=== PATIENT | female | born 1990 | race Two or more races ===

== ENCOUNTER 2024-06-02 14:20 | Emergency (ER) | payer OTHER, MEDICAID, SELFPAY ==
[2024-06-02 14:32] VITALS: BP 170/94; PULSE 94; RESP 24; TEMP 37.2; O2SAT 97
--- NOTE | 2024-06-02 14:48 | EDNOTE_ITS ---
<Statement entered by Keyla Odom MD - 06/03/24 09:15> As co-signing physician, I was present and available for consult prn. I concur with the plan and care as documented by the midlevel provider. ED General RME/HPI General Chief complaint: Back Pain/Injury Stated complaint: BACK PAIN Time Seen by Provider: 06/02/24 14:44 Arrival date/time: 06/02/24 14:20 RME / HPI RME / HPI narrative: 34-year-old female patient with no significant medical history, except for morbid obesity, came in for evaluation regarding low back pain. Patient has been having worsening low back pain for the last 1 month getting worse for the last 1 to 2 weeks, seen by PCP chiropractor, and was diagnosed with calcified disc disease lumbar area. Currently taking Motrin with no relief. Currently pain is 10 out of 10 nonradiating. Patient denies any urinary incontinence. Denies any bowel incontinence. Denies any saddle anesthesia. Patient denies any trauma or fall recently. Denies any fever no dysuria frequency or hem aturia. Related Data Home Medications ?Medication ?Instructions ?Recorded ?Confirmed NORGESTIMATE-ETHINYL ESTRADIOL 1 tab PO QDAY ##0 02/16/14 hydrochlorothiazide 25 mg tablet 25 mg PO QAM #0 tabs 02/16/14 Previous Rx's ?Medication ?Instructions ?Recorded Hydrocodone/Acetaminophen * (NORCO 1 tab PO Q4-6H PRN PAIN #10 tabs 08/13/14 5/325 *) cyclobenzaprine 10 mg tablet 10 mg PO TID PRN muscle spasm #30 06/02/24 tabs ibuprofen 800 mg tablet 800 mg PO TID PRN pain #30 tabs 06/02/24 Allergies Allergy/AdvReac Type Severity Reaction Status Date / Time No Known Allergies Allergy Verified 06/02/24 15:14 Review of Systems Review of Systems Narrative Review of Systems: Review of system reviewed and within normal limits except mentioned in HPI ED Exam Narrative Physical exam: VITAL SIGNS: Reviewed. GENERAL APPEARANCE: Alert and interactive, follows commands, no acute distress, HEAD AND FACE: Non-traumatic. ENT: PERRL, pink conjunctivitis, eyelid no trauma, Mucous membrane moist. NECK: Supple, nontender, no nuchal rigidity. CHEST: No tenderness, no crepitus, no paradoxical movement, no retractions. LUNGS: Clear, well ventilated, symmetric, no rales, no wheezing, no ronchi, no stridor, good breath sounds bilaterally. HEART: Regular rate, regular rhythm, no murmur, no gallops. ABDOMEN: Soft, positive bowel sounds, nondistended, no guarding, nontender, no rebound, no masses, RECTAL: Deferred. GENITAL: Deferred. NEUROLOGICAL: Gross motor function intact sensory function intact, Appropriate for age. MUSCULOSKELETAL: low back tenderness, full range of motion. EXTREMITIES: Nontender, full range of motion. SKIN: Color pink, dry, no rash, no lacerations, no abrasions, no contusions. LYMPHATICS: Deferred. Course Quality Measures none Orders Category Date Time Status CYCLObenzaPRINE [Flexeril] Med 06/02/24 14:47 Discontinued 10 mg PO X1 ONE Ketorolac Inj [Toradol Inj] Med 06/02/24 14:47 Discontinued 60 mg IM X1 ONE Vital Signs Vital signs: Vital Signs Temperature 98.9 F 06/02/24 14:32 Pulse Rate 94 06/02/24 14:32 Respiratory Rate 24 H 06/02/24 14:32 Blood Pressure 170/94 H 06/02/24 14:32 Pulse Oximetry (%) 97 06/02/24 14:32 Oxygen Delivery Method Room Air 06/02/24 14:32 [facility] Patient data External records reviewed:: None Clinical information provided by:: patient Social determinants that could affect healthcare access:: none Patient has the following chronic illnesses:: History of back pain How is presenting disease/condition affected by chronic disease/condition?: exacerbated by Evaluation data The following diagnostics were reviewed and interpreted by me:: other (specify) (None) Lab and/or radiology exams considered but not ordered:: None Interpretation Summary: None Medications Medications considered but not ordered:: None Medication administrations:: Medication Administration History Discontinued Medications Cyclobenzaprine HCl (Cyclobenzaprine 5 Mg Tablet) 10 mg PO X1 ONE Stop: 06/02/24 14:48 Last Admin: 06/02/24 15:47 Dose: 10 mg Documented By: Ketorolac Tromethamine (Ketorolac Inj 60 Mg/2 Ml Vial) 60 mg IM X1 ONE Stop: 06/02/24 14:48 Last Admin: 06/02/24 15:47 Dose: 60 mg Documented By: FELIBERTO Toradol and Flexeril Consultations Consultation(s) initiated? (list below): No Diagnosis Differential Diagnosis ED Complaint MDM: Acute low back pain, acute on chronic low back pain, degenerative lumbar di Most likely diagnosis given after review of the tests above:: Acute on chronic low back pain Admission Indicated Admission indicated?: not indicated Explain why admission is indicated or not indicated:: Stable Admission Request Was there a request for admission?: No Disposition Plan Disposition Plan: Discharge Discharge Attestation Discharge Attestation: The patient and all family members were given an opportunity to ask questions and understood the discharge instructions. Discharge instructions specifically effects, indications for sooner follow up or return to the emergency department, and the expected course of current diagnosis. Patient condition: Stable Medical Decision Making MDM Narrative MDM Narrative: 34-year-old female patient with no significant medical history, except for morbid obesity, came in for evaluation regarding low back pain. Patient has been having worsening low back pain for the last 1 month getting worse for the last 1 to 2 weeks, seen by PCP chiropractor, and was diagnosed with calcified disc disease lumbar area. Currently taking Motrin with no relief. Currently pain is 10 out of 10 nonradiating. Patient denies any urinary incontinence. Denies any bowel incontinence. Denies any saddle anesthesia. Patient denies any trauma or fall recently. Denies any fever no dysuria frequency or hematuria. Imaging is not needed at this time patient is not showing any cauda equina syndrome patient is ambulatory after patient received Toradol IM patient was advised to follow-up closely with PCP and for referral to physical therapy for further management. If no improvement. Physical therapy patient is probably needing MRI of the lumbar spine. Differential Diagnosis Differential Diagnosis: Acute low back pain, acute on chronic low back pain, degenerative lumbar di Discharge Plan Plan Patient Disposition: HOME (Self Care) Disposition Comment: stable Prescriptions/Referrals Prescriptions/Med Rec: New cyclobenzaprine 10 mg tablet 10 mg PO TID PRN (Reason: muscle spasm) Qty: 30 0RF ibuprofen 800 mg tablet 800 mg PO TID PRN (Reason: pain) Qty: 30 0RF No Action hydrochlorothiazide 25 MG tablet 25 mg PO QAM Qty: 0 NORGESTIMATE-ETHINYL ESTRADIOL 1 EACH tablet 1 tab PO QDAY Qty: 0 Hydrocodone/Acetaminophen * (NORCO 5/325 *) 1 TAB tablet 1 tab PO Q4-6H PRN (Reason: PAIN) Qty: 10 0RF Rx Instructions: FOR PAIN Referrals: Swathi Medina [Primary Care Provider] - In 1 week Problem List Clinical Impression: Low back pain Patient/Caregiver Discharge Instructions Discharge Activity: activity as tolerated Education Materials: ED Back Care Tips Additional Instructions: Thank you for the opportunity for serving you today. You are stable for discharged . You are advised to: Follow-up with your PCP in 1 to 2 days Return to ED for worsening of symptoms Increase oral fluids Take medication as prescribed Print Language: Frisian Stand Alone Forms: Eileen Award Info., Work/School Release, Patient Portal Info Letter PA/BOILER INSPECTOR Supervising Physician PA/BOILER INSPECTOR Supervising Physician: MD Kimmie
[2024-06-02 15:10] VITALS: BMI 62.1
[2024-06-02] MEDS: CYCLObenzaPRINE 5 MG TABLET 10 MG PO (15:47)
[2024-06-02] MEDS: KETOROLAC INJ 60 MG/2 ML VIAL IM (15:47)
[2024-06-02 17:01] VITALS: BP 159/77; PULSE 82; RESP 18; TEMP 37.1; O2SAT 98
== END 2024-06-02 17:26 | disposition home or self-care (01) ==
PROVIDERS: Emergency Provider Emergency Medicine; PCP Nurse Practitioner Family
DX: M54.50 Low back pain, unspecified (principal); E66.01 Morbid (severe) obesity due to excess calories; Z68.44 Body mass index [BMI] 60.0-69.9, adult
CPT/HCPCS: 96372; 99283; J1885; A9270

== ENCOUNTER → 2024-06-05 | Outpatient (CLI) | payer OTHER, MEDICAID, SELFPAY ==
--- NOTE | 2024-06-05 10:30 | XR_ITS ---
Examination: Abdomen sonogram, Limited Date and time of exam: June 05, 2024 at 1001 hours INDICATIONS: Abnormal liver function tests on laboratory examination performed 2 weeks ago Technique: Real-time gonzalez scale transabdominal sonographic images of the upper abdomen obtained. Findings: Normal gallbladder Normal common bile duct 0.4 cm Pancreatic head 2.5 cm Liver 19.3 cm fatty infiltration smooth contour no focal liver lesions Normal hepatopedal portal venous flow Patent IVC IMPRESSION: Normal gallbladder Normal common bile duct Moderate hepatomegaly fatty liver
--- NOTE | 2024-06-05 11:00 | XR_ITS ---
Examination: Transvaginal ultrasound of the pelvis, complete Technique: Transvaginal sonographic images pelvis performed using gonzalez scale imaging Exam date and time: June 05, 2024 1003 hours INDICATIONS: Vaginal bleeding beginning several weeks ago, irregular heavy menses one year FINDINGS: Uterus 7.4 x 3.2 x 4.0 cm No uterine mass or intrauterine gestation Endometrial stripe 1.1 cm Benign cervical cyst Ovaries obscured by bowel gas IMPRESSION: No uterine mass or intrauterine gestation.
--- NOTE | 2024-06-05 11:00 | XR_ITS ---
Examination: Pelvic ultrasound, transabdominal, complete Technique: Transabdominal ultrasound of the pelvis performed using grayscale imaging Date and time of exam: June 05, 2024 1001 hours INDICATIONS: Irregular heavy vaginal bleeding several weeks FINDINGS: Uterus 6.8 x 3.7 x 4.8 cm Endometrial sign 0.9 cm No uterine mass or intrauterine gestation Right ovary obscured by bowel gas Left ovary 2.7 x 1.7 x 1.8 cm arterial flow IMPRESSION: Limited study No uterine mass or intrauterine gestation
== END | disposition home or self-care (01) ==
PROVIDERS: PCP Nurse Practitioner Family; Referring Provider Nurse Practitioner Family; Visit Provider Nurse Practitioner Family
DX: K76.0 Fatty (change of) liver, not elsewhere classified (principal); N93.9 Abnormal uterine and vaginal bleeding, unspecified
CPT/HCPCS: 76705; 76830; 76856

== ENCOUNTER → 2025-03-12 | Outpatient (CLI) | payer BC, MEDICAID, SELFPAY ==
--- NOTE | 2025-03-12 14:31 | XR_ITS ---
Examination: Abdomen AP single view Technique: AP portable supine abdomen, single view Exam date and time: March 05 [id number], 1436 hours INDICATIONS: Left-sided abdominal pain today FINDINGS: Moderate stool throughout the colon. No obstruction. No free air. IMPRESSION: Moderate stool throughout the colon No renal or ureteral calculi
== END | disposition home or self-care (01) ==
PROVIDERS: PCP Physician Assistant; Referring Provider Physician Assistant; Visit Provider Physician Assistant
DX: K59.00 Constipation, unspecified (principal)
CPT/HCPCS: 74018